=== PATIENT | male | born 1960 | race Asian ===

== ENCOUNTER 2019-05-15 10:16 | Emergency (ER) | payer OTHER ==
[2019-05-15] MEDS: KETOROLAC 30 MG INJ IM (11:24)
[2019-05-15] MEDS: COLCHICINE 0.6 MG CAP PO (13:03)
== END 2019-05-15 13:05 | disposition home or self-care (01) ==
LOC: FTE 10:16
DX: M10.9 Gout, unspecified (principal); I10 Essential (primary) hypertension; Z79.01 Long term (current) use of anticoagulants
CPT/HCPCS: 71045; 73610; 93971; 96372; 99285-25